=== PATIENT | male | born 1935 | race Caucasian/White ===

== ENCOUNTER 2020-08-29 09:43 | Emergency (ER) | payer BC ==
[~2020-08-29] VITALS: Ht 170.2 cm; Wt 79.8 kg
[2020-08-29 10:17] LABS: Basophils # (auto) 0 10 ^3/uL (0-0.2); Basophils % (auto) 0.6 % (0.0-2.0); Eosinophils # (auto) 0.2 10 ^3/uL (0-0.8); Eosinophils % (auto) 2.1 % (0.0-7.0); Hematocrit 44.7 % (41.0-53.0); Hemoglobin 15.7 g/dL (13.5-17.5); Mean Corpuscular Hemoglobin 31.9 pg (28.0-32.0); Mean Corpuscular Volume 91.1 fL (80.0-100.0); Monocytes # (auto) 0.5 10 ^3/uL (0-1.3); Monocytes % (auto) 6.5 % (0.0-12.0); Neutrophils % (auto) 64.8 % (37.0-80.0); Nucleated Red Blood Cells % 0.1 %; Platelet Count (auto) 228 10^3/uL (140-450); Red Cell Distribution Width 13.7 % (11.8-14.3); White Blood Cell 7.8 10^3/uL (4.4-10.8)
[2020-08-29 10:40] LABS: Chloride 107 mmol/L (98-107); Potassium 3.8 mmol/L (3.5-5.1); Sodium 142 mmol/L (136-145)
[2020-08-29 10:49] LABS: Alanine Aminotransferase 28 U/L (16-61); Albumin 4.3 g/dL (3.4-5.0); Alkaline Phosphatase 83 U/L (45-117); Anion Gap 7 (5-15); Aspartate Aminotransferase 22 U/L (15-37); BUN/Creatinine Ratio 15.3; Bilirubin, Total 0.8 mg/dL (0.2-1.0); Blood Urea Nitrogen 19 mg/dL (7-18); Calcium 9.2 mg/dL (8.5-10.1); Carbon Dioxide 28 mmol/L (21-32); GFR African American 71 mL/min; GFR Non-African American 59 mL/min; Glucose 101 mg/dL (74-106); Magnesium 2.2 mg/dL (1.6-2.6); Total Protein 8.1 g/dL (6.4-8.2)
[2020-08-29 12:00] LABS: Urine Bacteria NONE SEEN /hpf (None Seen); Urine Blood Negative /uL (Negative); Urine Mucus FEW (None Seen); Urine Specific Gravity 1.022 (1.001-1.035); Urine WBC 1 /hpf (0 - 3)
[2020-08-29 12:06] VITALS: BP 141/64
[2020-08-29] MEDS ORDERED: MECLIZINE HCL 25 MG TAB PO ONE (12:30)
== END 2020-08-29 13:10 | disposition home or self-care (01) ==
LOC: ER 09:43
DX: H81.13 Benign paroxysmal vertigo, bilateral (principal); I10 Essential (primary) hypertension; H54.40 Blindness, one eye, unspecified eye; Z86.73 Personal history of transient ischemic attack (TIA), and cerebral infarction without residual deficits
CPT/HCPCS: 36415; 70450; 71045; 80053; 81001; 83735; 84484; 85025; 93005; 99285; J8597